=== PATIENT | female | born 1995 | race Caucasian/White ===

== ENCOUNTER 2017-10-01 21:43 | Emergency (ER) | payer MEDICAID ==
[~2017-10-01] VITALS: Ht 165.1 cm; Wt 65.8 kg
[~2017-10-01 21:43] MED LIST: FERR325E14 PO; IBUP-2213 PO
[2017-10-01 21:50] VITALS: BP 115/60
--- NOTE | 2017-10-01 21:54 | NUR ---
TO LOBBY , AMBULATORY, A/W BED, LILIA JONES NOTED
--- NOTE | 2017-10-01 22:15 | NUR ---
PT TAKEN TO BED 3
--- NOTE | 2017-10-01 22:15 | NUR ---
ASSUMED CARE OF PT AT THIS TIME. C/O RIGHT FOOT/ANKLE SWELLING W/ PAIN X 1 HOUR. AAOX4 WITH EVEN AND STEADY GAIT; PATIENT STATES PAIN OF 8/10; VSS; PATIENT POSITIONED FOR COMFORT; HOB ELEVATED; BEDRAILS UP X2; BED DOWN. ER MD MADE AWARE OF PT STATUS. WILL CONTINUE TO MONITOR.
[2017-10-02] MEDS ORDERED: KETOROLAC 60 MG/2 ML VIAL IM ONE (00:55)
--- NOTE | 2017-10-02 00:59 | NUR ---
Dr. Pozo evaluating patient at bedside.
[2017-10-02 01:30] VITALS: BP 116/64
--- NOTE | 2017-10-02 01:30 | NUR ---
Patient discharged with v/s stable. Written and verbal after care instructions given and explained. Patient alert, oriented and verbalized understanding of instructions. Ambulatory with steady gait. All questions addressed prior to discharge. ID band removed. Patient advised to follow up with PMD. Rx of PREDNISONE, MOTRIN, AND NORCO given. Patient educated on indication of medication including possible reaction and side effects. Opportunity to ask questions provided and answered.
== END 2017-10-02 01:30 | disposition home or self-care (01) ==
LOC: MED 21:43
DX: M79.604 Pain in right leg (principal); Z90.89 Acquired absence of other organs; Z88.0 Allergy status to penicillin; Z88.6 Allergy status to analgesic agent; Z88.5 Allergy status to narcotic agent; Z79.899 Other long term (current) drug therapy
CPT/HCPCS: 96372; 99283; J1885

== ENCOUNTER 2018-05-03 16:08 | Emergency (ER) | payer MEDICAID ==
[~2018-05-03] VITALS: Ht 165.1 cm; Wt 81.6 kg
[2018-05-03 16:15] VITALS: BP 117/76
--- NOTE | 2018-05-03 16:34 | NUR ---
PATIENT AMBULATED TO BED 7 AT THIS TIME.
--- NOTE | 2018-05-03 16:40 | NUR ---
22Y/F BIB SELF WITH C/O COUGHING, BODYACHING, RUNNING NOSE, HEADACHE X2 DAYS, N/V/D X 3 TIMES TODAY, ABDOMINAL AND BACK PAIN. PT IS AAOX4, VSS, BED DOWN, BEDRAIL UP X 1, ER MD AWARE AND NOTIFIED OF PT STATUS. HX OF MULTIPLESCLEROSIS, ANEMIA, TOOK ZOFRAN THIS MORNING
--- NOTE | 2018-05-03 17:14 | NUR ---
Patient being evaluated by physician at bedside.
[2018-05-03] MEDS ORDERED: IBUPROFEN 600 MG TAB PO ONE (17:15)
--- NOTE | 2018-05-03 17:28 | NUR ---
INFLUENZA SWAB COLLECTED AND SENT TO LAB
[2018-05-03 19:07] VITALS: BP 116/75
--- NOTE | 2018-05-03 19:07 | NUR ---
Patient discharged with v/s stable. Written and verbal after care instructions given and explained. Patient alert, oriented and verbalized understanding of instructions. Ambulatory with steady gait. All questions addressed prior to discharge. ID band removed. Patient advised to follow up with PMD. Rx of zofran, motrin given. Patient educated on indication of medication including possible reaction and side effects. Opportunity to ask questions provided and answered.
== END 2018-05-03 19:07 | disposition home or self-care (01) ==
LOC: MED 16:08
DX: B34.9 Viral infection, unspecified (principal); Z88.0 Allergy status to penicillin; Z88.5 Allergy status to narcotic agent; Z88.6 Allergy status to analgesic agent; Z88.1 Allergy status to other antibiotic agents; Z79.899 Other long term (current) drug therapy
CPT/HCPCS: 81002; 81025; 87804; 99283

== ENCOUNTER 2018-07-01 20:24 | Emergency (ER) | payer MEDICAID ==
[~2018-07-01] VITALS: Ht 165.1 cm; Wt 85.3 kg
[2018-07-01 20:30] VITALS: BP 129/67
--- NOTE | 2018-07-01 20:37 | NUR ---
PT AMBULATED TO THE RESTROOM AND THEN BACK OUT TO LILIA SHEEHAN
[2018-07-01 21:02] LABS: BASOPHILS # (AUTO) 0.1 K/uL (0.00-0.22); BASOPHILS % (AUTO) 0.6 % (0.0-2.0); EOSINOPHILS # (AUTO) 0.2 K/uL (0-0.4); EOSINOPHILS % (AUTO) 1.7 % (0.0-4.0); HEMATOCRIT 40.5 % (36-48); HEMOGLOBIN 13.6 g/dL (12.0-16.0); LYMPHOCYTES # (AUTO) 2.8 K/uL (2.5-16.5); LYMPHOCYTES % (AUTO) 28.2 % (20.5-51.1); MEAN CORPUSCULAR HEMOGLOBIN 30 pg (27-31); MEAN CORPUSCULAR HGB CONC 34 g/dL (33-37); MEAN CORPUSCULAR VOLUME 89.5 fL (80-94); MONOCYTES # (AUTO) 0.9 K/uL (0.8-1.0); MONOCYTES % (AUTO) 9.6 % (1.7-9.3); NEUTROPHILS # (AUTO) 5.9 K/uL (1.8-7.7); NEUTROPHILS % (AUTO) 59.9 % (42.2-75.2); PLATELET COUNT (AUTO) 364 K/uL (140-450); RED BLOOD CELL COUNT(AUTO) 4.53 MIL/uL (4.20-5.40); RED CELL DISTRIBUTION WIDTH 13.4 % (11.6-13.7); WHITE BLOOD COUNT (AUTO) 9.8 K/uL (4.8-10.8)
--- NOTE | 2018-07-01 21:05 | NUR ---
PATIENT AMBULATED TO ER BED 4.
[2018-07-01 21:10] LABS: ANION GAP 11.4 (8-16); CARBON DIOXIDE 26.4 mmol/L (21-32); CREATININE 0.8 mg/dL (0.6-1.3); POTASSIUM 3.8 mmol/L (3.5-5.1)
[2018-07-01 21:16] LABS: ALBUMIN 3.7 g/dL (3.4-5.0); TOTAL BILIRUBIN 0.2 mg/dL (0.0-1.0)
[2018-07-01 21:42] LABS: BILIRUBIN,URINE NEGATIVE (NEGATIVE); BLOOD, URINE NEGATIVE (NEGATIVE); COLOR,URINE YELLOW (YELLOW); LEUKOCYTE ESTERASE ,URINE TRACE (NEGATIVE); NITRITE, URINE POSITIVE (NEGATIVE); UGLUCOSE NEGATIVE (NEGATIVE)
[2018-07-01 21:45] LABS: APPEARANCE,URINE HAZY (CLEAR)
[2018-07-01] MEDS ORDERED: traMADol 50 MG TAB PO ONE (21:45)
[2018-07-01 22:09] LABS: RBC,URINE 0-5 /HPF (0-5); WBC,URINE 20-60 /HPF (0-5)
[2018-07-01] MEDS ORDERED: NACL 0.9% 1,000 ML IV ONE (22:25)
[2018-07-01] MEDS ORDERED: KETOROLAC 30 MG/ML VIAL IVP ONE (22:25)
[2018-07-01] MEDS ORDERED: cefTRIAXone 1,000 MG VIAL ONE (22:47)
[2018-07-01] MEDS ORDERED: ONDANSETRON 4 MG/2 ML VIAL IVP ONE (23:40)
[2018-07-01] MEDS ORDERED: fentaNYL 0.05 MG/ML VIAL IVP ONE (23:40)
--- NOTE | 2018-07-01 23:40 | NUR ---
PT STATES 8/10 PAIN AT THIS TIME, ER MD AWARE. WILL FOLLOW UP W/ ORDER.
--- NOTE | 2018-07-02 00:30 | NUR ---
Patient discharged with v/s stable. Patient acting appropriatly, states she feels better after recieving pain medication and pain is 0/10 at this time; patient states she is ready to go home. Written and verbal after care instructions given and explained. Patient alert, oriented and verbalized understanding of instructions. Ambulatory with steady gait. All questions addressed prior to discharge. ID band removed. Patient advised to follow up with PMD. Rx of Zofran, Keflex, and Tramadol given. Patient educated on indication of medication including possible reaction and side effects. Opportunity to ask questions provided and answered.
[2018-07-02 00:35] VITALS: BP 102/62
== END 2018-07-02 00:30 | disposition home or self-care (01) ==
LOC: MED 20:24
DX: N39.0 Urinary tract infection, site not specified (principal); Z79.1 Long term (current) use of non-steroidal anti-inflammatories (NSAID); Z79.899 Other long term (current) drug therapy; Z88.6 Allergy status to analgesic agent; Z88.1 Allergy status to other antibiotic agents; Z88.5 Allergy status to narcotic agent; Z88.0 Allergy status to penicillin; Z88.2 Allergy status to sulfonamides
CPT/HCPCS: 36415; 80053; 81001; 81025; 85025; 87086; 87186; 96365; 96375; 99283; J0696; J1885; J2405; J3010; J7030; J7060

== ENCOUNTER 2018-12-03 06:39 | Emergency (ER) | payer MEDICAID ==
[~2018-12-03] VITALS: Ht 165.1 cm; Wt 81.6 kg
[2018-12-03 06:45] VITALS: BP 110/68
--- NOTE | 2018-12-03 06:45 | NUR ---
TO BED # 11 AMBULATORY.
--- NOTE | 2018-12-03 06:57 | NUR ---
PATIENT PRESENTS TO ED WITH LEFT ARM NUMBNESS, AN HOUR AGO, GENERALIZED ABD PAIN X 3 DAYS RADIATING TO HER BACK FOR 3 DAYS . DENIES N/V/D; SKIN IS PINK/WARM/DRY; AAOX4 WITH EVEN AND STEADY GAIT; LUNGS CLEAR BL; HR EVEN AND REGULAR; PT DENIES ANY FEVER, CP, SOB, OR COUGH AT THIS TIME; PATIENT STATES PAIN OF 7/10 AT THIS TIME; VSS; PATIENT POSITIONED FOR COMFORT; HOB ELEVATED; BEDRAILS UP X2; BED DOWN. ER MD MADE AWARE OF PT STATUS.
--- NOTE | 2018-12-03 07:06 | NUR ---
RECEIVED REPORT FROM NIRMAL.
--- NOTE | 2018-12-03 07:09 | NUR ---
RECEIVED REPORT FROM NIRMAL REIS
--- NOTE | 2018-12-03 07:13 | NUR ---
Dr. Marquez evaluating patient at bedside.
[2018-12-03 07:40] VITALS: BP 110/68
--- NOTE | 2018-12-03 07:40 | NUR ---
Patient discharged with v/s stable. Written and verbal after care instructions given and explained. Patient alert, oriented and verbalized understanding of instructions. Ambulatory with steady gait. All questions addressed prior to discharge. ID band removed. Patient advised to follow up with PMD. Rx of PREDNISONE AND PEPCID given. Patient educated on indication of medication including possible reaction and side effects. Opportunity to ask questions provided and answered.
== END 2018-12-03 07:40 | disposition home or self-care (01) ==
LOC: MED 06:39
DX: G35 Multiple sclerosis (principal); K59.00 Constipation, unspecified; K21.9 Gastro-esophageal reflux disease without esophagitis; Z90.49 Acquired absence of other specified parts of digestive tract; Z79.1 Long term (current) use of non-steroidal anti-inflammatories (NSAID); Z79.899 Other long term (current) drug therapy; Z88.0 Allergy status to penicillin; Z88.6 Allergy status to analgesic agent; Z88.5 Allergy status to narcotic agent; Z88.1 Allergy status to other antibiotic agents; Z88.2 Allergy status to sulfonamides
CPT/HCPCS: 81002; 81025; 99283

== ENCOUNTER 2019-01-31 14:37 | Emergency (ER) | payer MEDICAID ==
[~2019-01-31] VITALS: Ht 165.1 cm; Wt 81.6 kg
[2019-01-31 15:07] VITALS: BP 118/61
--- NOTE | 2019-01-31 18:31 | NUR ---
PT AMBULATED TO BED 11
--- NOTE | 2019-01-31 18:52 | NUR ---
23 YEAR OLD FEMALE COMPLAINS OF 10/10 SHARP PAIN IN HER SPINAL CORD, STOMACH, AND RIBS SUDDENLY 6 HOURS AGO. DENIES TRAUMA. PATIENT STATES SHORTNESS OF BREATHE. LUNGS CTABL, RR 20, SPO2 97%. PATIENT BREATHING EVEN AND UNLABORED, ALERT AND ORIENTED, SKIN WARM AND DRY. BED IN LOWEST POSITION, LOCKED, BED RAIL UPX1. PMH - MULTIPLE SCLEROSIS MEDICATIONS - NONE ALLERGIES - NKA
--- NOTE | 2019-01-31 21:30 | NUR ---
DR JEAN AT BEDSIDE, PATIENT ALERT AND ORIENTED, BREATHING EVEN AND UNLABORED
[2019-01-31] MEDS ORDERED: KETOROLAC 30 MG/ML VIAL IVP ONE (21:40)
[2019-01-31] MEDS ORDERED: NACL 0.9% 1,000 ML IV ONE (21:40)
[2019-01-31 21:47] LABS: APPEARANCE,URINE CLEAR (CLEAR); BILIRUBIN,URINE NEGATIVE (NEGATIVE); BLOOD, URINE NEGATIVE (NEGATIVE); COLOR,URINE YELLOW (YELLOW); LEUKOCYTE ESTERASE ,URINE NEGATIVE (NEGATIVE); NITRITE, URINE POSITIVE (NEGATIVE); PH,URINE 5.5 (5.0-9.0); UGLUCOSE NEGATIVE (NEGATIVE)
--- NOTE | 2019-01-31 21:50 | NUR ---
XRAY AT BEDSIDE
[2019-01-31 22:23] VITALS: BP 104/66
--- NOTE | 2019-01-31 22:23 | NUR ---
Patient discharged with v/s stable by Dr Deluca. Written and verbal after care instructions given and explained by Dr Deluca. Patient alert, oriented and verbalized understanding of instructions. Ambulatory with steady gait. All questions addressed prior to discharge by Dr Deluca. ID band removed by Dr Deluca. Patient advised to follow up with PMD by Dr Deluca. Rx of NAPROSYN given by Dr Deluca. Patient educated on indication of medication including possible reaction and side effects by Dr Deluca. Opportunity to ask questions provided and answered by Dr Deluca.
== END 2019-01-31 22:23 | disposition home or self-care (01) ==
LOC: MED 14:37
DX: R09.1 Pleurisy (principal); E78.00 Pure hypercholesterolemia, unspecified; Z90.49 Acquired absence of other specified parts of digestive tract; Z88.0 Allergy status to penicillin; Z88.5 Allergy status to narcotic agent; Z88.1 Allergy status to other antibiotic agents; Z88.6 Allergy status to analgesic agent; Z79.899 Other long term (current) drug therapy
CPT/HCPCS: 71045; 81003; 81025; 96374; 99284; J1885

== ENCOUNTER 2019-03-17 08:31 | Inpatient (IN) | payer MEDICAID ==
[~2019-03-17] VITALS: Ht 165.1 cm; Wt 81.6 kg
[2019-03-17 08:33] VITALS: BP 114/68
--- NOTE | 2019-03-17 08:46 | NUR ---
23 Y/O F C/C RUQ PAIN 10/10 RADIATING TO BACK X 1 DAY, STABBING SENSATION. PER PT HAS NOT TAKEN RX AT HOME FOR PAIN. PT ALSO WITH LOW APPETITE. PT WITH MULTIPLE ALLERGIES. HX MULTIPLE SCLEROSIS, FIBROMYALGIA, APPENDIX REMOVAL 2018. NO RX. NAUSEA. NO V/D. SIDE RAIL X1.
[2019-03-17] MEDS ORDERED: NACL 0.9% 500 ML IV ONE (09:03)
[2019-03-17] MEDS ORDERED: ONDANSETRON 4 MG/2 ML VIAL IVP ONE (09:05)
[2019-03-17] MEDS ORDERED: KETOROLAC 30 MG/ML VIAL IVP ONE (09:05)
--- NOTE | 2019-03-17 09:08 | NUR ---
us at bedside
--- NOTE | 2019-03-17 09:11 | NUR ---
US AT BEDSIDE
[2019-03-17 09:27] LABS: BASOPHILS % (AUTO) 0.3 % (0.0-2.0); EOSINOPHILS % (AUTO) 0.5 % (0.0-4.0); HEMATOCRIT 40.7 % (36-48); HEMOGLOBIN 13.7 g/dL (12.0-16.0); LYMPHOCYTES # (AUTO) 1.4 K/uL (2.5-16.5); LYMPHOCYTES % (AUTO) 17.8 % (20.5-51.1); MEAN CORPUSCULAR HEMOGLOBIN 31 pg (27-31); MEAN CORPUSCULAR HGB CONC 34 g/dL (33-37); MEAN CORPUSCULAR VOLUME 92.5 fL (80-94); MONOCYTES # (AUTO) 0.7 K/uL (0.8-1.0); MONOCYTES % (AUTO) 8.9 % (1.7-9.3); NEUTROPHILS # (AUTO) 5.9 K/uL (1.8-7.7); NEUTROPHILS % (AUTO) 72.5 % (42.2-75.2); PLATELET COUNT (AUTO) 314 K/uL (140-450); RED CELL DISTRIBUTION WIDTH 13.5 % (11.6-13.7); WHITE BLOOD COUNT (AUTO) 8.1 K/uL (4.8-10.8)
[2019-03-17 09:49] LABS: ANION GAP 10.3 (8-16); POTASSIUM 4.3 mmol/L (3.5-5.1)
[2019-03-17 09:50] LABS: CREATININE 0.8 mg/dL (0.6-1.3)
[2019-03-17 09:51] LABS: ALBUMIN 3.3 g/dL (3.4-5.0); TOTAL BILIRUBIN 1.4 mg/dL (0.0-1.0)
[2019-03-17] MEDS ORDERED: fentaNYL 0.05 MG/ML VIAL IVP ONE (10:10)
[2019-03-17] MEDS ORDERED: DOCUSATE SODIUM 100 MG GELCAP PO PRN (11:20)
[2019-03-17] MEDS ORDERED: ONDANSETRON 4 MG/2 ML VIAL IM/IVP PRN (11:20)
[2019-03-17] MEDS ORDERED: LORazepam 2 MG/ML VIAL IM/IVP PRN (11:20)
[2019-03-17] MEDS ORDERED: HYDROcodone/APAP 7.5/325 MG 1 TAB PO PRN (12:25)
--- NOTE | 2019-03-17 12:45 | NUR ---
PATIENT ARRIVED ON FLOOR VIA GURNEY, REPORT RECEIVED FROM PRODUCE LABORER AT BEDSIDE FOR CONTINUITY OF CARE. BELONGINGS LIST SIGNED AT BEDSIDE. PATIENT'S FIANCE ANAI AT BEDSIDE. PATIENT DX ACUTE CHOLECYSTITIS, STATING PAIN 9/10 ABD RUQ. IV SITE INTACT, ASYMPTOMATIC ON LAC 20G, CURRENTLY SALINE LOCKED. RESPIRATIONS EVEN AND UNLABORED ON ROOM AIR. MRSA SCREENING DONE. UPDATED BOARD. VERBALIZED PLAN OF CARE TO PATIENT AND FIANCE, THEY VERBALIZED UNDERSTANDING. ORIENTED THEM TO ROOM, CALL LIGHT, TV, BATHROOM, AND VISITING HOURS. CALL LIGHT WITHIN REACH, WILL CONTINUE TO MONITOR PATIENT.
--- NOTE | 2019-03-17 12:48 | NUR ---
Patient will be admitted to care of [facility]. Admited to TELEMETRY. Will go to room 120B. Belongings list completed. Report to SMILEY YUEN.
[2019-03-17 12:50] VITALS: BP 105/56
[2019-03-17] MEDS: NACL 0.9% 1,000 ML IV SCH (13:10)
[2019-03-17] MEDS: MORPHINE SULFATE 2 MG/ML SYR IVP PRN (13:26)
--- NOTE | 2019-03-17 13:26 | NUR ---
PATIENT C/O NAUSEA, PRN ZOFRAN GIVEN. PATIENT C/O 10/10 ABD RUQ PAIN, PRN PAIN MEDICATION GIVEN. PATIENT TOLERATING THEM. PATIENT REQUEST TO HAVE FLU VACCINE UPON DISCHARGE, WILL INFORM DR DOOLEY. CALL LIGHT WITHIN REACH, WILL CONTINUE TO MONITOR PATIENT.
[2019-03-17 13:42] LABS: PHOSPHORUS 2.5 mg/dL (2.5-4.9); THYROID STIMULATING HORMONE 2.7 uIU/mL (0.34-3.74)
[2019-03-17 13:44] LABS: PROTHROMBIN TIME 9.3 secs (10.8-13.4)
[2019-03-17] MEDS: KETOROLAC 30 MG/ML VIAL IVP PRN ×2 (14:04→20:45)
--- NOTE | 2019-03-17 14:04 | NUR ---
PATIENT C/O 6/10 SUPRAPUBIC PAIN, REQUESTED FOR PAIN MEDICATION, PRN PAIN MEDICATION GIVEN. PATIENT IS TOLERATING IT. ALL NEEDS MET AT THIS TIME. CALL LIGHT WITHIN REACH, WILL CONTINUE TO MONITOR PATIENT.
--- NOTE | 2019-03-17 14:56 | NUR ---
DC PLANNIN YRS OLD FEMALE PATIENT WAS ADMITTED FROM HOME WITH THE DX OF ACUTE CHOLECYSTITIS . MEDICAL HX. MULTIPLE SCLEROSIS, ABDOMINAL ULTRASOUND SHOWED CHOLELITHIASIS CXRAY (-) [id number] , ALT 214 AND TOTAL BILIRUBIN 1.4 . ADMINISTERED IVF , PAIN CONTROLLED WITH MORPHINE, CONSULTED DR VOSS SURGEON . DC PLAN TO GO HOME WHEN STABLE CM TO FOLLOW.
[2019-03-17 16:00] VITALS: BP 96/57
--- NOTE | 2019-03-17 16:00 | NUR ---
SPOKE TO [facility] NURSING PAINTINGS RESTORER TO ASK ABOUT PROCEDURE WITH DR. VOSS, NO NEWS. PER DR DOOLEY, DR. VOSS WILL COME DO PROCEDURE 'SOON'. PAGED DR. VOSS, HE CALLED BACK, HE STATED TO KEEP PATIENT NPO. AIRCRAFT ENGINE MECHANIC SUPERVISOR NATHAN AWARE.
[2019-03-17] MEDS: FERROUS SULFATE 325 MG TABEC PO SCH (16:35)
--- NOTE | 2019-03-17 17:35 | NUR ---
PATIENT REQUESTED ATIVAN PRN, STATING ANXIETY BEFORE CT EXAM. PRN ATIVAN GIVEN REQUESTED. PATIENT WHEELED OFF FLOOR TO RADIOLOGY, WILL WAIT FOR RESULTS.
--- NOTE | 2019-03-17 17:45 | NUR ---
RECEIVED CALL FROM TYSHAWN ALFARO FROM [facility] REGARDING DR VOSS'S ORDER OF ROCEPHIN Q12, PATIENT ALLERGIC TO PENICILLIN SO POSSIBLE ALLERGIC REACTION. RN VERBALIZED UNDERSTANDING AND WILL FOLLOW UP WITH DR. VOSS TO VERIFY ORDER.
--- NOTE | 2019-03-17 18:10 | NUR ---
PAGED DR VOSS, TO ASK ABOUT VERIFICATION OF ROCEPHIN. WILL WAIT FOR HIS CALL BACK.
--- NOTE | 2019-03-17 18:45 | NUR ---
DR VOSS CALLED BACK. PER DR. VOSS, WILL GIVE ROCEPHIN DOSE BUT MONITOR CLOSELY D/T PATIENT'S ALLERGY LIST. WILL FOLLOW PHARMACY'S RECOMMENDATION FOR Q24H INSTEAD Q12H. ORDER NOTED AND WILL BE FOLLOW OUT. WILL ENDORSE TO VP ACCOUNT DIRECTOR NURSE THIS INFORMATION. Addendum: 03/17/19 at 1934 by Alfredo Sanchez RN DR VOSS AWARE OF PATIENT'S ALLERGY TO PENICILLIN. ORDERED TO GIVE ROCEPHIN DOSE AND MONITOR CLOSELY.
--- NOTE | 2019-03-17 19:15 | NUR ---
REPORT GIVEN TO BALL WINDER NURSE AT BEDSIDE FOR CONTINUITY OF CARE. PATIENT IN STABLE CONDITION.
--- NOTE | 2019-03-17 19:20 | NUR ---
RECEIVED FROM AM RN IN BED AWAKE AND ALERT. ABLE TO CARRY A CONVERSATION WELL. BANKER MASON IN HERE AT THIS TIME TO COLLECT BLOOD SPECIMEN. TOLERATING WELL. CARE PLANS FOR THE NIGHT DISCUSSED WITH HER AND CALL LIGHT WITH IN REACH. DX. OF ACUTE CHOLECYSTITIS. REMINDED NPO FOR A PROCEDURE TOMORROW WITH MD VOSS,A. PT. AWARE AND DENIES PAIN AT THIS TIME. SKIN INTACT .CTAB. NO SOB. IVF SITE INTACT AND NO INFILTRATION NOTED.
[2019-03-17 20:35] VITALS: BP 125/67
[2019-03-17] MEDS ORDERED: cefTRIAXone 1,000 MG VIAL ONE (20:41)
[2019-03-17 21:18] LABS: ANION GAP 17.1 (8-16); CARBON DIOXIDE 18.2 mmol/L (21-32); CREATININE 0.6 mg/dL (0.6-1.3); POTASSIUM 4.3 mmol/L (3.5-5.1); TOTAL BILIRUBIN 2.5 mg/dL (0.0-1.0)
--- NOTE | 2019-03-17 21:36 | NUR ---
PT. SLEEPING AT THIS TIME . TORADOL IVP WITH GOOD EFFECT TO PAIN. SISTER AT BEDSIDE. NO ADVERSE REACTIONS NOTED TO ROCEPHIN 1 GM IVPB ADMINISTERED . NO RASHES NO SOB NO URTICARIA NOTED. ENCOURAGED SISTER AT BEDSIDE TO CALL FOR ANY HELP THEY MAY NEED OR IF PT. GETS RESTLESS OR IN PAIN. "OK"
--- NOTE | 2019-03-17 23:05 | NUR ---
SLEEPING AT THIS TIME. SISTER AT BEDSIDE WATCHING OVER HER. NPO..
[2019-03-18 00:04] VITALS: BP 93/50
--- NOTE | 2019-03-18 03:01 | NUR ---
PT. TURNED TO SIDES. WENT BACK TO SLEEP. SISTER AT BEDSIDE WATCHING OVER HER. NO COMPLAINTS DONE. CALL LIGHT WITH IN REACH.
[2019-03-18] MEDS: NACL 0.9% 1,000 ML IV SCH ×2 (03:56→20:36)
--- NOTE | 2019-03-18 06:06 | NUR ---
SLEPT WELL. NO RESTLESSNESS. CALL LIGHT AT BEDSIDE FOR EASY ACCESS. SISTER WATCHING PT. OVERNIGHT. NPO SINCE MIDNIGHT.
[2019-03-18 06:16] LABS: BASOPHILS % (AUTO) 0.3 % (0.0-2.0); EOSINOPHILS # (AUTO) 0.1 K/uL (0-0.4); EOSINOPHILS % (AUTO) 1.9 % (0.0-4.0); HEMATOCRIT 38.6 % (36-48); LYMPHOCYTES # (AUTO) 1.6 K/uL (2.5-16.5); MEAN CORPUSCULAR HEMOGLOBIN 32 pg (27-31); MEAN CORPUSCULAR HGB CONC 34 g/dL (33-37); MEAN CORPUSCULAR VOLUME 93.8 fL (80-94); MONOCYTES # (AUTO) 0.8 K/uL (0.8-1.0); MONOCYTES % (AUTO) 10.7 % (1.7-9.3); NEUTROPHILS # (AUTO) 4.8 K/uL (1.8-7.7); NEUTROPHILS % (AUTO) 65.1 % (42.2-75.2); PLATELET COUNT (AUTO) 262 K/uL (140-450); RED BLOOD CELL COUNT(AUTO) 4.11 MIL/uL (4.20-5.40); RED CELL DISTRIBUTION WIDTH 13.5 % (11.6-13.7); WHITE BLOOD COUNT (AUTO) 7.4 K/uL (4.8-10.8)
[2019-03-18 06:46] LABS: MAGNESIUM 1.9 mg/dL (1.8-2.4); PHOSPHORUS 2.6 mg/dL (2.5-4.9)
--- NOTE | 2019-03-18 07:35 | NUR ---
SHIFT REPORT RECEIVED FROM ARMED GUARD NURSE. PT IS RESTING IN BED AT THIS TIME. FAMILY BE BEDSIDE. NO COMPLAINS OF PAIN. CALL LIGHT IN REACH.
[2019-03-18 07:44] LABS: APPEARANCE,URINE SL CLOUDY (CLEAR); BILIRUBIN,URINE 2+ (NEGATIVE); BLOOD, URINE NEGATIVE (NEGATIVE); COLOR,URINE AMBER (YELLOW); LEUKOCYTE ESTERASE ,URINE 2+ (NEGATIVE); NITRITE, URINE POSITIVE (NEGATIVE); PH,URINE 6.5 (5.0-9.0); UGLUCOSE TRACE (NEGATIVE)
[2019-03-18 08:00] VITALS: BP 100/61
[2019-03-18 08:05] LABS: HYALINE CASTS, URINE 0-10 /LPF (None Seen); RBC,URINE 0-5 /HPF (0-5)
--- NOTE | 2019-03-18 08:19 | NUR ---
PATIENT HAS BEEN SCREENED AND CATEGORIZED LOW NUTRITION RISK. PATIENT WILL BE SEEN WITHIN 7 DAYS OF ADMISSION. 03/23/[address]
[2019-03-18] MEDS: ASCORBIC ACID 500 MG TAB PO SCH (08:31)
[2019-03-18] MEDS: FERROUS SULFATE 325 MG TABEC PO SCH ×3 (08:38→17:00)
[2019-03-18 09:25] LABS: BARBITURATE, URINE NEGATIVE ng/ml (NEG <=200); BENZODIAZEPINE, URINE NEGATIVE ng/mL (NEG <=200); CANNABINOID, URINE NEGATIVE ng/mL (NEG <=50); COCAINE, URINE NEGATIVE ng/mL (NEG <=300); OPIATE, URINE NEGATIVE ng/mL (NEG <=2000); PHENCYCLIDINE SCREEN,URINE NEGATIVE ng/mL (NEG <=25)
--- NOTE | 2019-03-18 09:45 | NUR ---
PT IS TAKEN OF UNIT TO OR.
[2019-03-18] MEDS ORDERED: BUPIVACAINE-MPF/EPI 0.25% 30 ML VIAL INJ ONE (09:49)
[2019-03-18] MEDS ORDERED: DESFLURANE 240 ML BTL INH ONE (09:56)
[2019-03-18] MEDS ORDERED: ROCURONIUM 50 MG/5 ML VIAL IV ONE (09:56)
[2019-03-18] MEDS ORDERED: DEXAMETHASONE 4 MG/ML VIAL ONE (09:56)
[2019-03-18] MEDS ORDERED: KETOROLAC 30 MG/ML VIAL ONE (09:56)
[2019-03-18] MEDS ORDERED: PROPOFOL 200 MG/20 ML VIAL IV ONE (09:56)
[2019-03-18] MEDS ORDERED: ONDANSETRON 4 MG/2 ML VIAL ONE (09:56)
[2019-03-18] MEDS ORDERED: ONDANSETRON 4 MG/2 ML VIAL IVP PRN ×2 (10:00→12:10)
[2019-03-18] MEDS ORDERED: HYDROmorphone PFS 2 MG/ML SYR ONE (11:48)
[2019-03-18] MEDS: HYDROmorphone 1 MG/ML AMP IVP PRN ×2 (11:48→11:59)
[2019-03-18] MEDS ORDERED: MORPHINE SULFATE 4 MG/ML SYR IV PRN (12:10)
[2019-03-18] MEDS ORDERED: MORPHINE SULFATE 2 MG/ML SYR IVP PRN (12:10)
[2019-03-18] MEDS ORDERED: HYDROmorphone 1 MG/ML AMP IVP PRN (12:10)
--- NOTE | 2019-03-18 12:35 | NUR ---
PT CAME BACK TO THE UNIT. PT'S VITAL SIGNS TAKEN. BP 108/63, PULSE, 97, TEMP 97.5, RESP 16. PT COMPLAINS OF PAIN AT THIS TIME. PT IS STILL DROWSY BUT RESPONDS TO VERBAL COMMANDS. WILL CONTINUE TO MONITOR. FAMILY BE BEDSIDE. CALL LIGHT IN REACH.
[2019-03-18] MEDS: KETOROLAC 30 MG/ML VIAL IVP PRN ×2 (13:06→19:25)
--- NOTE | 2019-03-18 14:00 | NUR ---
Business Test Analyst Note Basic Screen: Yes High Risk DC Screen Calera: NIKKI Cordero Relationship: MOTHER Pre-Admission Living Arrangements: Lives with Other Prior ADL Independent Current Home Health Name/Tel: N/A Current DME/02 Name/Tel: N/A Current Hospice Name/Tel: N/A Current Dialysis Name/Tel: N/A Healthcare Decision Maker: Patient Advance Directive No - REFUSED Physician Orders for Life Sustaining Treatment Form No Patient/Family Have Educational Needs No Information Taught: Advance Directive Person Taught: Patient Teaching Tools: Verbal Factors Affecting Learning: None Participation Level: Refused Evaluation: Verbalizes Understanding Discipline: Case Mgt/Social Svcs Tentative Discharge Plan/Destination: No Needs Identified Will require assistance post discharge: No Referred to Rope Cleaner: No Tentative Discharge Plan Summary: Patient is a 23-year-old female admitted for acute cholecysitis. Patient has PMHX of multiple sclerosis. Patient was admitted from home where she lives with her mother. SW met with patient at bedside to verify demographics. Patient reports no history of mental health and no history of substance abuse. Tentative discharge plan is for patient to return home. No further needs identified. Signature: MAYA Garza Date: Mar 18, 2019 Time: 13:58
--- NOTE | 2019-03-18 14:30 | NUR ---
PT IS RESTING IN BED. FAMILY BE BEDSIDE. PT COMPLAINS OF PAIN WHEN ASKED. BUT IS ABLE TO TOLERATED PAIN. PT IS HAVING FEELING OF NAUSEA. WILL CONTINUE TO MONITOR. CALL LIGHT IN REACH.
[2019-03-18 16:00] VITALS: BP 108/61
--- NOTE | 2019-03-18 17:23 | NUR ---
FERROUS SULFATE MEDS NOT GIVEN. PT IS IS HAVING FEELINGS OF NAUSEA AND VOMITING.
--- NOTE | 2019-03-18 19:26 | NUR ---
SHIFT REPORT GIVEN TO MOBILE APPLICATION TESTER NURSE. PT IS RESTING IN BED IN STABLE CONDITION.. CALL LIGHT IN REACH.
--- NOTE | 2019-03-18 19:30 | NUR ---
EMPTIED 35ML OF SEROSANGUINEOUS FLUID FROM ANTONINO DRAIN. NO S/SX ACUTE DISTRESS AT THIS TIME. CALL LIGHT WITHIN REACH. WILL CONTINUE TO MONITOR.
--- NOTE | 2019-03-18 19:35 | NUR ---
PATIENT C/O ABDOMINAL PAIN 07/16. MEDICATED ORDERED. CALL LIGHT WITHIN REACH. WILL CONTINUE TO MONITOR.
--- NOTE | 2019-03-18 20:35 | NUR ---
REASSESSED PAIN LEVEL AT 3/10, TOLERABLE AT THIS TIME. PATIENT CONTINUES TO LOOK UNCOMFORTABLE. REPOSITIONED TOLERATED FOR COMFORT. CALL LIGHT WITHIN REACH. WILL CONTINUE TO MONITOR.
[2019-03-18] MEDS: MORPHINE SULFATE 2 MG/ML SYR IVP PRN (21:02)
[2019-03-18] MEDS: ZOLPIDEM 5 MG TAB PO PRN (21:59)
--- NOTE | 2019-03-18 23:27 | NUR ---
PATIENT C/O ABDOMINAL PAIN 07/16. MEDICATED ORDERED. CALL LIGHT WITHIN REACH. WILL CONTINUE TO MONITOR.
[2019-03-19] VITALS: BP 106/67
--- NOTE | 2019-03-19 00:27 | NUR ---
REASSESSED PAIN LEVEL AT 3/10, TOLERABLE PAIN LEVEL. CALL LIGHT WITHIN REACH. WILL CONTINUE TO MONITOR.
--- NOTE | 2019-03-19 03:37 | NUR ---
PATIENT C/O ABDOMINAL PAIN 08/15. MEDICATED ORDERED. CALL LIGHT WITHIN REACH. WILL CONTINUE TO MONITOR.
--- NOTE | 2019-03-19 04:37 | NUR ---
REASSESSED PAIN LEVEL AT 3/10, TOLERABLE FOR PATIENT. PATIENT STATED THAT THE DILAUDID WORKED BETTER THAN THE PREVIOUS MEDICATIONS. PATIENT COMFORTABLY IN BED AND ON HER PHONE. NO S/SX ACUTE DISTRESS. CALL LIGHT WITHIN REACH. WILL CONTINUE TO MONITOR.
[2019-03-19] MEDS: NACL 0.9% 1,000 ML IV SCH (05:56)
[2019-03-19] MEDS: KETOROLAC 30 MG/ML VIAL IVP PRN ×2 (06:04→19:55)
--- NOTE | 2019-03-19 07:25 | NUR ---
RECEIVED REPORT FROM CORONARY CLINICAL SPECIALIST NURSE AT BEDSIDE FOR CONTINUITY OF CARE. PATIENT AWAKE AND ALERT, RESPIRATIONS EVEN AND UNLABORED ON 4L O2 VIA NC, PATIENT C/O PAIN AT SURGICAL SITE ON ABDOMEN, WILL MEDICATE WHEN DUE, PATIENT AWARE OF NEXT SCHEDULED MED. UPDATED BOARD. UPDATED PATIENT WITH PLAN OF CARE. SHE VERBALIZED UNDERSTANDING. IV SITE INTACT, PATENT, ASYMPTOMATIC, INFUSING IVF WELL. PATIENT S/P LAP CHOLY WITH DR VOSS ON 03/18/19. DRESSING ON ABDOMEN X4, INTACT, DRY AND CLEAN. CALL LIGHT WITHIN REACH, WILL CONTINUE TO MONITOR PATIENT.
[2019-03-19 08:00] VITALS: BP 110/68
[2019-03-19] MEDS: FERROUS SULFATE 325 MG TABEC PO SCH ×3 (08:00→17:39)
--- NOTE | 2019-03-19 08:00 | NUR ---
PATIENT O2 WEANED DOWN TO 2L. WILL CONTINUE TO MONITOR PATIENT.
[2019-03-19] MEDS: ASCORBIC ACID 500 MG TAB PO SCH (10:30)
[2019-03-19 10:53] LABS: BASOPHILS % (AUTO) 0.1 % (0.0-2.0); CARBON DIOXIDE 22.7 mmol/L (21-32); CREATININE 0.6 mg/dL (0.6-1.3); EOSINOPHILS % (AUTO) 0.1 % (0.0-4.0); HEMATOCRIT 38.9 % (36-48); HEMOGLOBIN 12.7 g/dL (12.0-16.0); LYMPHOCYTES # (AUTO) 1.6 K/uL (2.5-16.5); LYMPHOCYTES % (AUTO) 13.2 % (20.5-51.1); MEAN CORPUSCULAR HEMOGLOBIN 31 pg (27-31); MEAN CORPUSCULAR HGB CONC 33 g/dL (33-37); MEAN CORPUSCULAR VOLUME 94.3 fL (80-94); MONOCYTES # (AUTO) 0.9 K/uL (0.8-1.0); MONOCYTES % (AUTO) 7.3 % (1.7-9.3); NEUTROPHILS # (AUTO) 9.3 K/uL (1.8-7.7); NEUTROPHILS % (AUTO) 79.3 % (42.2-75.2); PLATELET COUNT (AUTO) 289 K/uL (140-450); POTASSIUM 3.7 mmol/L (3.5-5.1); RED BLOOD CELL COUNT(AUTO) 4.12 MIL/uL (4.20-5.40); RED CELL DISTRIBUTION WIDTH 13.7 % (11.6-13.7); WHITE BLOOD COUNT (AUTO) 11.8 K/uL (4.8-10.8)
[2019-03-19 10:54] LABS: BILIRUBIN,DIRECT 0.3 mg/dL (0.0-0.3); PHOSPHORUS 2.7 mg/dL (2.5-4.9); TOTAL BILIRUBIN 0.7 mg/dL (0.0-1.0)
--- NOTE | 2019-03-19 11:35 | NUR ---
Patient ambulating around floor slowly but steadily with family. Patient has no complaints at this time. Will continue to monitor patient.
--- NOTE | 2019-03-19 11:45 | NUR ---
PATIENT SATURATING 97% ON RA. NO S/S OF DISTRESS OR SOB NOTED. WILL CONTINUE TO MONITOR PATIENT.
[2019-03-19] MEDS ORDERED: MORPHINE SULFATE 2 MG/ML SYR IVP PRN (13:50)
[2019-03-19 16:00] VITALS: BP 117/66
--- NOTE | 2019-03-19 17:20 | NUR ---
ANTONINO DRAINED 30 ML OF SANGUINOUS FLUID. PATIENT C/O PAIN AT RAC SITE FROM VENIPUNCTURE. PICTURE TAKEN OF SITE. SITE REDDENED FROM TAPE AND PRESENCE OF BLISTER. PT C/O PAIN, WILL MEDICATE PRN.
[2019-03-19] MEDS: HYDROcodone/APAP 5/325 MG 1 TAB TAB PO PRN ×2 (17:39→22:28)
--- NOTE | 2019-03-19 19:05 | NUR ---
DR VOSS IN TO SEE PATIENT, REMOVED ANTONINO DRAIN. REPORT GIVEN TO PROJECT CONSTRUCTION ASSISTANT MANAGER NURSE FOR CONTINUITY OF CARE.
--- NOTE | 2019-03-19 19:21 | NUR ---
RECEIVED PATIENT IN STABLE CONDITION FROM AM SHIFT FOR CONTINUITY OF CARE. RESPIRATIONS EVEN, UNLABORED. SKIN WARM, DRY. SURGICAL INCISIONS COVERED WITH DRY DRESSINGS INTACT. IV SITE TO LEFT AC 20G PATENT/INTACT, INFUSING FLUIDS WELL. NO C/O PAIN. NO S/SX ACUTE DISTRESS NOTED. CALL LIGHT WITHIN REACH. WILL CONTINUE TO MONITOR.
--- NOTE | 2019-03-19 19:55 | NUR ---
PATIENT C/O ACHING ABDOMINAL PAIN 06/15. MEDICATED ORDERED. WILL CONTINUE TO MONITOR.
--- NOTE | 2019-03-19 20:55 | NUR ---
REASSESSED PAIN LEVEL 3/10, TOLERABLE FOR PATIENT. ALL OTHER NEEDS MET. CALL LIGHT WITHIN REACH. WILL CONTINUE TO MONITOR.
[2019-03-19] MEDS: ZOLPIDEM 5 MG TAB PO PRN (21:04)
--- NOTE | 2019-03-19 22:28 | NUR ---
PATIENT C/O ACHING ABDOMINAL PAIN 07/16. MEDICATED ORDERED. CALL LIGHT WITHIN REACH. WILL CONTINUE TO MONITOR.
--- NOTE | 2019-03-19 23:28 | NUR ---
REASSESSED PAIN LEVEL, PATIENT IS ASLEEP. NO S/SX ACUTE DISTRESS. CALL LIGHT WITHIN REACH. WILL CONTINUE TO MONITOR.
[2019-03-20] VITALS: BP 95/51
[2019-03-20] MEDS: NACL 0.9% 1,000 ML IV SCH (00:43)
--- NOTE | 2019-03-20 01:59 | NUR ---
MADE ROUNDS. PATIENT IS ASLEEP. NO C/O PAIN. NO S/SX ACUTE DISTRESS. CALL LIGHT WITHIN REACH. WILL CONTINUE TO MONITOR.
--- NOTE | 2019-03-20 03:05 | NUR ---
PATIENT IS ASLEEP AND IN STABLE CONDITION. NO C/O PAIN. NO S/SX ACUTE DISTRESS. CALL LIGHT WITHIN REACH. WILL CONTINUE TO MONITOR.
--- NOTE | 2019-03-20 05:10 | NUR ---
PATIENT CONTINUES IN STABLE CONDITION. NO C/O PAIN. NO S/SX ACUTE DISTRESS. PATIENT IS SLEEPING WELL. CALL LIGHT WITHIN REACH. WILL CONTINUE TO MONITOR.
[2019-03-20 05:55] LABS: BASOPHILS % (AUTO) 0.2 % (0.0-2.0); EOSINOPHILS # (AUTO) 0.1 K/uL (0-0.4); EOSINOPHILS % (AUTO) 1.2 % (0.0-4.0); HEMOGLOBIN 12.3 g/dL (12.0-16.0); LYMPHOCYTES # (AUTO) 2.6 K/uL (2.5-16.5); LYMPHOCYTES % (AUTO) 27.1 % (20.5-51.1); MEAN CORPUSCULAR HEMOGLOBIN 31 pg (27-31); MEAN CORPUSCULAR HGB CONC 32 g/dL (33-37); MEAN CORPUSCULAR VOLUME 94.6 fL (80-94); MONOCYTES # (AUTO) 0.9 K/uL (0.8-1.0); MONOCYTES % (AUTO) 9.1 % (1.7-9.3); NEUTROPHILS # (AUTO) 6.1 K/uL (1.8-7.7); NEUTROPHILS % (AUTO) 62.4 % (42.2-75.2); PLATELET COUNT (AUTO) 275 K/uL (140-450); RED BLOOD CELL COUNT(AUTO) 4.02 MIL/uL (4.20-5.40); RED CELL DISTRIBUTION WIDTH 13.9 % (11.6-13.7); WHITE BLOOD COUNT (AUTO) 9.7 K/uL (4.8-10.8)
[2019-03-20 06:34] LABS: ALBUMIN 2.8 g/dL (3.4-5.0); ANION GAP 9.8 (8-16); CARBON DIOXIDE 27.7 mmol/L (21-32); CREATININE 0.7 mg/dL (0.6-1.3); POTASSIUM 3.5 mmol/L (3.5-5.1); TOTAL BILIRUBIN 0.4 mg/dL (0.0-1.0)
--- NOTE | 2019-03-20 07:09 | NUR ---
ENDORSED PATIENT IN STABLE CONDITION TO AM SHIFT NURSE FOR CONTINUITY OF CARE.
--- NOTE | 2019-03-20 07:10 | NUR ---
RECEIVED REPORT FROM NIGHT NURSE. PT IN BED SLEEPING, NO DISTRESS NOTED. RESPIRATIONS EVEN AND UNLABORED ON ROOM AIR, CLEAR BREATH SOUNDS. IV IN PLACE, PATENT AND ASYMPTOMATIC INFUSING PER ORDER IN L AC 20G. ABDOMINAL INCISION S/P LAP MCKAYLA. SAFETY MEASURES IN PLACE. CALL LIGHT WITHIN REACH, BED IN LOW POSITION. WILL CONTINUE TO MONITOR.
[2019-03-20 08:00] VITALS: BP 100/55
[2019-03-20] MEDS: FERROUS SULFATE 325 MG TABEC PO SCH (08:33)
[2019-03-20] MEDS: ASCORBIC ACID 500 MG TAB PO SCH (08:33)
--- NOTE | 2019-03-20 08:33 | NUR ---
MEDICATIONS ADMINISTERED PER ORDER. PT TOLERATED WELL. PT AMBULATING INSIDE ROOM, NO DISTRESS NOTED. WILL CONTINUE TO MONITOR.
[2019-03-20 09:15] VITALS: BP 100/55
[2019-03-20] MEDS ORDERED: CEPH250C16 PO (10:05)
--- NOTE | 2019-03-20 10:28 | NUR ---
PT IN BED, ASLEEP. NO DISTRESS NOTED. SAFETY MEASURES IN PLACE. BED IN LOW POSITION. WILL CONTINUE TO MONITOR.
--- NOTE | 2019-03-20 11:35 | NUR ---
PT DISCHARGED AT THIS TIME. DISCHARGE, FOLLOWUP AND MEDICATION EDUCATION GIVEN, PT VERBALIZED UNDERSTANDING. DISCHARGE PAPERWORK SIGNED BY PT. VACCINATION UP TO DATE. SURGICAL SITE DRESSING IN PLACE LESS THAN 24HS, NO PICTURE TAKEN. BELONGINGS VERIFIED AND RETURNED TO PT. VITAL SIGNS WITHIN NORMAL LIMITS. RESPIRATIONS EVEN AND UNLABORED ON ROOM AIR. DENIES PAIN. IV SITE REMOVED WITH MINIMAL BLOOD LOSS AND LUMEN INTACT. PT ESCORTED OFF UNIT VIA WHEELCHAIR, TRANSPORTED HOME VIA PRIVATE VEHICLE DRIVEN BY GRANDMOTHER.
== END 2019-03-20 11:35 | disposition home or self-care (01) | DRG 263 ==
LOC: MED 08:31 → MTU 11:16
PROVIDERS: ADMIT General Practice; ATTEND General Practice
PROC: BF121ZZ Fluoroscopy of Gallbladder using Low Osmolar Contrast (ICD-10-PCS; 2019-03-18)
PROC: 0FT44ZZ Resection of Gallbladder, Percutaneous Endoscopic Approach (ICD-10-PCS; principal; 2019-03-18 13:40)
DX: K80.00 Calculus of gallbladder with acute cholecystitis without obstruction (principal); E44.1 Mild protein-calorie malnutrition; N39.0 Urinary tract infection, site not specified; G35 Multiple sclerosis; N83.202 Unspecified ovarian cyst, left side; Z68.30 Body mass index [BMI] 30.0-30.9, adult; Z88.1 Allergy status to other antibiotic agents; Z88.5 Allergy status to narcotic agent; Z88.0 Allergy status to penicillin; Z88.2 Allergy status to sulfonamides
CPT/HCPCS: 36415; 71045; 74300; 76705; 80048; 80053; 80076; 80305; 81001; 82374; 83036; 83690; 83735; 84100; 84134; 84443; 85025; 85610; 85730; 86886; 86900; 86901; 87081; 87086; 88304; 96374; 96375; 99285; C1887; J0696; J1100; J1170; J1885; J2060; J2270; J2405; J2704; J3010; J3490; J7030; J7060; Q0092; Q9967

== ENCOUNTER 2019-10-22 16:48 | Emergency (ER) | payer MEDICAID ==
[~2019-10-22] VITALS: Ht 165.1 cm; Wt 81.6 kg
[~2019-10-22 16:48] MED LIST changes: +CEPH250C16 PO; -FERR325E14 PO
[2019-10-22 16:59] VITALS: BP 119/71
--- NOTE | 2019-10-22 17:21 | NUR ---
24 YO FEMALE C/O SIDE PAIN, ABD PAIN SINCE YESTERDAY WITH NAUSEA DENIES ANY V/D. DENIES DYSURIA ALLERGIES: PENICILLINS, SULFA, CODEINE, TYLENOL PMH: MS, CHRONIC BRONCHITIS
[2019-10-22] MEDS ORDERED: KETOROLAC 60 MG/2 ML VIAL IM ONE (17:30)
[2019-10-22] MEDS ORDERED: ONDANSETRON 4 MG ODT PO ONE (17:30)
[2019-10-22 18:11] VITALS: BP 119/71
--- NOTE | 2019-10-22 18:12 | NUR ---
Patient discharged with v/s stable. Written and verbal after care instructions given and explained. Patient alert, oriented and verbalized understanding of instructions. Ambulatory with steady gait. All questions addressed prior to discharge. ID band removed. Patient advised to follow up with PMD. Rx of MOTRIN AND ZOFRAN given. Patient educated on indication of medication including possible reaction and side effects. Opportunity to ask questions provided and answered.
== END 2019-10-22 18:12 | disposition home or self-care (01) ==
LOC: MED 16:48
DX: R10.9 Unspecified abdominal pain (principal); R11.0 Nausea; Z88.0 Allergy status to penicillin; Z88.1 Allergy status to other antibiotic agents; Z88.5 Allergy status to narcotic agent; Z88.2 Allergy status to sulfonamides; Z79.899 Other long term (current) drug therapy; Z90.49 Acquired absence of other specified parts of digestive tract
CPT/HCPCS: 81002; 81025; 96372; 99283; J1885; Q0162

== ENCOUNTER 2020-01-03 23:33 | Emergency (ER) | payer MEDICAID ==
[~2020-01-03] VITALS: Ht 165.1 cm; Wt 82.6 kg
[2020-01-03 23:44] VITALS: BP 119/75
--- NOTE | 2020-01-04 00:02 | NUR ---
PT C/O NUMBESS TO LEFT SIDE OF HER FACE SINCE YESTERDAY. HX OF BELLS PALSY, NO FACIAL DROOPING NOTED AND SPEECH CLEAR. PT ALSO HAVING SEVERE BURNING PAIN TO ALL HER FINGERS AND BILATERAL WRISTS SINCE YESTERDAY. COMING IN TODAY DUE TO THE PAIN BEING SO SEVERE. PT HAS POOR HAND GRASPS DUE TO LEVEL OF PAIN. PT AMBULATES WITH STEADY GAIT. BED IN LOWEST POSITION AND SIDERAIL UP X 1. ALLERGIES - SULFA, PCN HX - BELLS PALSY, MS
[2020-01-04] MEDS ORDERED: methylPREDNISolone SS 125 MG/2 ML VIAL IM ONE (00:35)
[2020-01-04 00:46] VITALS: BP 119/75
== END 2020-01-04 00:46 | disposition home or self-care (01) ==
LOC: MED 23:33
DX: M79.641 Pain in right hand (principal); M79.642 Pain in left hand
CPT/HCPCS: 96372; 99283; J2930

== ENCOUNTER 2020-03-12 17:57 | Emergency (ER) | payer MEDICAID ==
[~2020-03-12] VITALS: Ht 165.1 cm; Wt 81.6 kg
[2020-03-12 18:02] VITALS: BP 118/75
--- NOTE | 2020-03-12 18:40 | NUR ---
24 YO F BIB SELF FOR C/C OF 10/10 CHEST PAIN X 10 MIN PRIOR TO ARRIVAL. PT STATES "IT FEELS LIKE SOMEONE PUNCHED ME IN THE MIDDLE OF MY CHEST AND IT IS BRUISED." PT STATES SHE RECIEVED "BAD NEWS" ON THE PHONE PRIOR TO ONSET OF C/P. PT ALSO REPORTS FLASHES OF HER VISION GOING IN AND OUT WHILE DRIVING TO HOSPITAL. PT DENIES N/V/D AND COVID SYMPTOMS. PT PLACED ON INTERNET SALES CONSULTANT, PULSE OX. BED LOCKED AND IN LOWEST POSITION. SIDE RAILS X1. MED HX: MS, PTSD, EPILEPSY
--- NOTE | 2020-03-12 18:45 | NUR ---
EKG AT BEDSIDE
--- NOTE | 2020-03-12 18:49 | NUR ---
LAB AT BEDSIDE
--- NOTE | 2020-03-12 18:51 | NUR ---
RAD AT BEDSIDE
--- NOTE | 2020-03-12 18:51 | NUR ---
Christie james in [facility] - 03/12/20 at 1851 by [email or web address] BRANDON AT BEDSIDE
[2020-03-12 18:59] LABS: BASOPHILS % (AUTO) 0.5 % (0.0-2.0); EOSINOPHILS # (AUTO) 0.1 K/uL (0-0.4); EOSINOPHILS % (AUTO) 0.8 % (0.0-4.0); HEMATOCRIT 40.9 % (36-48); HEMOGLOBIN 13.7 g/dL (12.0-16.0); MEAN CORPUSCULAR HEMOGLOBIN 31 pg (27-31); MEAN CORPUSCULAR HGB CONC 34 g/dL (33-37); MONOCYTES # (AUTO) 0.6 K/uL (0.8-1.0); MONOCYTES % (AUTO) 6.1 % (1.7-9.3); NEUTROPHILS # (AUTO) 7.4 K/uL (1.8-7.7); NEUTROPHILS % (AUTO) 72.6 % (42.2-75.2); PLATELET COUNT (AUTO) 361 K/uL (140-450); RED CELL DISTRIBUTION WIDTH 12.9 % (11.6-13.7); WHITE BLOOD COUNT (AUTO) 10.2 K/uL (4.8-10.8)
[2020-03-12 19:18] LABS: ALBUMIN 3.9 g/dL (3.4-5.0); ANION GAP 11.2 (8-16); CARBON DIOXIDE 28.1 mmol/L (21-32); CREATININE 0.8 mg/dL (0.6-1.3); POTASSIUM 4.3 mmol/L (3.5-5.1); TOTAL BILIRUBIN 0.3 mg/dL (0.0-1.0)
--- NOTE | 2020-03-12 19:20 | NUR ---
REPORT GIVEN TO SMILEY GUTIERREZ. TRANSFER OF CARE AT THIS TIME.
--- NOTE | 2020-03-12 19:21 | NUR ---
RECIVED REPORT FROM ZAID REIS, TRANSFER OF CARE.
--- NOTE | 2020-03-12 20:35 | NUR ---
IV PLACED IN R FA. PAIN MEDICATIONS GIVEN ORDERED BY ERMD. PATIENT TOLERATED. WELL. VSS. PAINTENT STATES PAIN IS IN R SIDE OF CHEST 11/15. PATIENT REMAINS ON CARDIAC MONIOR. VSS.
[2020-03-12] MEDS: PROCHLORPERAZINE 10 MG/2 ML VIAL IVP ONE (20:38)
[2020-03-12] MEDS: KETOROLAC 15 MG/ML VIAL IVP ONE (20:40)
--- NOTE | 2020-03-12 21:20 | NUR ---
PATIENT STATES R SIDED CHEST PAIN REDUCED FROM 10/10 TO 2/10 S/P MEDICATION ADMINISTRATION. YAND MADE AWARE AND D/C PAPERWORK PREPARED.
--- NOTE | 2020-03-12 21:29 | NUR ---
IV removed, catheter intact and site benign. Applied folded 4x4 gauze and tape to stop bleeding.
[2020-03-12 21:30] VITALS: BP 112/76
--- NOTE | 2020-03-12 21:30 | NUR ---
Patient discharged with v/s stable. Written and verbal after care instructions given and explained. Patient verbalized understanding. Ambulatory with steady gait. All questions addressed prior to discharge. Advised to follow up with PMD.
== END 2020-03-12 21:30 | disposition home or self-care (01) ==
LOC: MED 17:57
DX: R07.9 Chest pain, unspecified (principal); R51.9 Headache, unspecified; R20.0 Anesthesia of skin; Z88.0 Allergy status to penicillin; Z88.2 Allergy status to sulfonamides; Z88.5 Allergy status to narcotic agent; Z88.1 Allergy status to other antibiotic agents; Z79.899 Other long term (current) drug therapy
CPT/HCPCS: 36415; 71045; 80053; 84484; 85025; 93005; 96374; 96375; 99285; J0780; J1885

== ENCOUNTER 2020-05-24 23:31 | Emergency (ER) | payer MEDICAID ==
[~2020-05-24] VITALS: Ht 165.1 cm; Wt 81.6 kg
[2020-05-24 23:34] VITALS: BP 133/88
[2020-05-25] MEDS ORDERED: PRED20TA5 PO (00:37)
[2020-05-25] MEDS ORDERED: ACET-9882 PO (00:37)
[2020-05-25] MEDS ORDERED: DOXY100C9 PO (00:37)
[2020-05-25] MEDS ORDERED: CALA177L13 TP (00:37)
[2020-05-25 00:44] VITALS: BP 133/88
== END 2020-05-25 00:44 | disposition home or self-care (01) ==
LOC: MED 23:31
DX: R21 Rash and other nonspecific skin eruption (principal); Z90.49 Acquired absence of other specified parts of digestive tract
CPT/HCPCS: 99283

== ENCOUNTER 2020-07-08 23:13 | Emergency (ER) | payer MEDICAID ==
[~2020-07-08] VITALS: Ht 165.1 cm; Wt 85.3 kg
[~2020-07-08 23:13] MED LIST changes: +ACET-9882 PO; +CALA177L13 TP; +DOXY100C9 PO; +PRED20TA5 PO
[2020-07-08 23:16] VITALS: BP 122/69
--- NOTE | 2020-07-08 23:24 | NUR ---
PT TAKEN TO BED 7
--- NOTE | 2020-07-08 23:40 | NUR ---
PT. IS A 24 Y/O FEMALE THAT CAME INTO ED WITH C/O OF THROAT BEING SWOLLEN. PT. STATES THAT SHE FEELS "THAT SHE HAS TROUBLE BREATHING, TALKING." SHE STATES THAT IT WAS AN ONSET OCCURRENCE THAT HAPPENED AROUND 10:30PM AFTER WORK. SHE RATES HER PAIN AT AN 8/10 ON THE PAIN SCALE. SKIN IS PINK/WARM/DRY; AAOX4 WITH EVEN AND STEADY GAIT; HR EVEN AND REGULAR; PT DENIES ANY FEVER, CP, SOB, OR COUGH AT THIS TIME; VSS; PATIENT POSITIONED FOR COMFORT; HOB ELEVATED; BEDRAILS UP X2; BED DOWN. ER MD MADE AWARE OF PT STATUS.
[2020-07-09 00:15] VITALS: BP 126/61
--- NOTE | 2020-07-09 00:30 | NUR ---
STREP A SWAB COMPLETED AND TAKEN TO LAB. HANDED DIRECTLY TO HOSEA, FROM LAB.
[2020-07-09] MEDS ORDERED: IBUP-2218 PO (01:27)
[2020-07-09] MEDS ORDERED: DEXAMETHASONE 4 MG/ML VIAL IM ONE (01:30)
== END 2020-07-09 01:39 | disposition home or self-care (01) ==
LOC: MED 23:13
DX: J03.90 Acute tonsillitis, unspecified (principal); Z88.0 Allergy status to penicillin; Z88.2 Allergy status to sulfonamides; Z88.6 Allergy status to analgesic agent; Z88.5 Allergy status to narcotic agent; Z88.1 Allergy status to other antibiotic agents; Z79.899 Other long term (current) drug therapy
CPT/HCPCS: 81002; 81025; 87081; 99283

== ENCOUNTER 2020-08-11 02:27 | Emergency (ER) | payer MEDICAID ==
[~2020-08-11] VITALS: Ht 165.1 cm; Wt 82.6 kg
[~2020-08-11 02:27] MED LIST changes: +IBUP-2218 PO
[2020-08-11 02:46] VITALS: BP 122/76
--- NOTE | 2020-08-11 02:48 | NUR ---
24 YO F BIB SELF WITH C/C OF N/V/D AND ABD PAIN 8/10 X1 DAY. PT DENIES CHILLS AND FEVER. ABD SOFT AND FLAT, BOWEL SOUNDS ACTIVE X4, TENDERNESS ON R AND L UPPER QUADS. PT DENIED TKING MEDICATION FOR PAIN. PT IS SITTING UP IN BED, SIDE RAILS X1 AND BED LOCKED IN LOWEST POSITION. FRIEND AT BEDSIDE. ALL NEEDS MET AT THIS TIME. HX: MS SURG: GALLBLADDER REMOVAL AND APPENDECTOMY LAST MENS: 6 YEARS AGO; HAS IUD
[2020-08-11] MEDS ORDERED: ONDANSETRON 4 MG ODT PO ONE (02:55)
--- NOTE | 2020-08-11 03:39 | NUR ---
Dr. Pozo examining patient.
[2020-08-11] MEDS ORDERED: KETOROLAC 60 MG/2 ML VIAL IM ONE (03:45)
[2020-08-11] MEDS ORDERED: IBUP-2213 PO (03:50)
[2020-08-11] MEDS ORDERED: ONDA8TAB87 PO (03:50)
[2020-08-11] MEDS ORDERED: LOPE-289 PO (03:50)
[2020-08-11 04:07] VITALS: BP 122/76
--- NOTE | 2020-08-11 04:07 | NUR ---
Patient discharged with v/s stable. Written and verbal after care instructions given and explained. Patient alert, oriented and verbalized understanding of instructions. Ambulatory with steady gait. All questions addressed prior to discharge. ID band removed. Patient advised to follow up with PMD. Rx of IBUPROFEN, IMODIUM AND ZOFRAN given. Patient educated on indication of medication including possible reaction and side effects. Opportunity to ask questions provided and answered.
== END 2020-08-11 04:07 | disposition home or self-care (01) ==
LOC: MED 02:27
DX: R10.13 Epigastric pain (principal); R11.2 Nausea with vomiting, unspecified; R19.7 Diarrhea, unspecified; Z88.0 Allergy status to penicillin; Z88.2 Allergy status to sulfonamides; Z88.1 Allergy status to other antibiotic agents; Z88.6 Allergy status to analgesic agent; Z88.5 Allergy status to narcotic agent; Z79.899 Other long term (current) drug therapy; Z90.49 Acquired absence of other specified parts of digestive tract
CPT/HCPCS: 81025; 96372; 99283; J1885; Q0162

== ENCOUNTER 2020-09-10 22:18 | Emergency (ER) | payer OTHER, MEDICAID ==
[~2020-09-10] VITALS: Ht 165.1 cm; Wt 82.6 kg
[~2020-09-10 22:18] MED LIST changes: +LOPE-289 PO; +ONDA8TAB87 PO
[2020-09-10 22:46] VITALS: BP 120/72
[2020-09-10] MEDS ORDERED: methylPREDNISolone SS 125 MG/2 ML VIAL IM ONE (23:50)
--- NOTE | 2020-09-11 00:55 | NUR ---
PT AMBULATED TO RESTROOM WITH URINE SAMPLE.
[2020-09-11] MEDS ORDERED: methylPREDNISolone SS 125 MG/2 ML VIAL ONE (01:10)
--- NOTE | 2020-09-11 02:40 | NUR ---
RESULT BACK AND NOTED BY ERMD AND FOR DC
[2020-09-11 02:55] VITALS: BP 116/78
== END 2020-09-11 02:55 | disposition home or self-care (01) ==
LOC: MED 22:18
DX: S09.8XXA Other specified injuries of head, initial encounter (principal); V49.9XXA Car occupant (driver) (passenger) injured in unspecified traffic accident, initial encounter; Y93.89 Activity, other specified; Y92.89 Other specified places as the place of occurrence of the external cause; Y99.8 Other external cause status
CPT/HCPCS: 70450; 81002; 81025; 96372; 99284; J2930